=== PATIENT | male | born 1980 ===

== ENCOUNTER 2021-02-21 18:17 | Emergency (ER) | payer SELFPAY ==
[~2021-02-21] VITALS: Ht 180.3 cm; Wt 81.7 kg
[2021-02-21] MEDS ORDERED: Cleocin HCl150 MG PO (19:22)
== END 2021-02-21 19:39 | disposition home or self-care (01) ==
LOC: ER 18:17
DX: L03.116 Cellulitis of left lower limb (principal); R23.4 Changes in skin texture; F17.200 Nicotine dependence, unspecified, uncomplicated; R19.7 Diarrhea, unspecified
CPT/HCPCS: 99283; A9270